=== PATIENT | male | born 1995 | race Caucasian/White ===

== ENCOUNTER 2018-03-06 14:25 | Emergency (ER) | payer OTHER ==
[2018-03-06 14:57] VITALS: BP 152/83
--- NOTE | 2018-03-06 15:52 | UC ---
Back Pain HPI - HPI Summary HPI Summary: Pt c/o sudden onset of left lower back and leg pain, weakness and numbness that began this morning upon waking. Pt states when he got out of bed this morning and left leg "gave out" and he fell to ground. - History of Current Complaint Chief Complaint: UCLowerExtremity Stated Complaint: LEFT LEG PAIN Time Seen by Provider: 03/06/18 15:39 Hx Obtained From: Patient Onset/Duration: Sudden Onset, Still Present, Other - c/o pain, weakness and numbness improved since this morning at time of visit Severity Initially: Moderate Severity Currently: Mild Pain Intensity: 6 Back Pain: Is Discrete @ - left lower bakc, Radiates To - posterior left leg and foot Character: Dull, Aching, Burning Aggravating Factor(s): Movement Alleviating Factor(s): Rest, Position Associated Signs And Symptoms: Positive: Weakness, Numbness, Tingling - Risk Factors AAA Risk Factors: Negative TAD Risk Factors: Negative Cauda Equina Risk Factors: Negative Epidural Abscess Risk Factors: Negative - Allergies/Home Medications Allergies/Adverse Reactions: Allergies Allergy/AdvReac Type Severity Reaction Status Date / Time amoxicillin Allergy Intermediate Hives Verified 03/06/18 14:47 azithromycin Allergy Intermediate Hives Verified 03/06/18 14:47 cefaclor [From Ceclor] Allergy Intermediate Hives Verified 03/06/18 14:47 Penicillins Allergy Intermediate Hives Verified 03/06/18 14:47 Sulfa (Sulfonamide Allergy Intermediate Hives Verified 03/06/18 14:47 Antibiotics) latex Allergy Unknown Rash Verified 03/06/18 14:47 PMH/Surg Hx/FS Hx/Imm Hx Previously Healthy: Yes - Surgical History Surgical History: Yes Surgery Procedure, Year, and Place: T&A - Family History Known Family History: Positive: Unknown, Hypertension, Diabetes - Social History Occupation: Employed Full-time Lives: With Family Alcohol Use: None Substance Use Type: None Smoking Status (MU): Light Every Day Tobacco Smoker Type: Cigarettes Amount Used/How Often: 5 CIGS PER DAY Length of Time of Smoking/Using Tobacco: 2-3 YRS Have You Smoked in the Last Year: Yes - Immunization History Vaccination Up to Date: Yes Review of Systems Constitutional: Negative Skin: Negative Eyes: Negative ENT: Negative Respiratory: Negative Cardiovascular: Negative Gastrointestinal: Negative Genitourinary: Negative Motor: Weakness - left leg Neurovascular: Negative Musculoskeletal: Myalgia - left leg Neurological: Negative Psychological: Negative Is Patient Immunocompromised?: No All Other Systems Reviewed And Are Negative: Yes Physical Exam Triage Information Reviewed: Yes Appearance: Obese Vital Signs: Initial Vital Signs Temp 98 F 03/06/18 14:49 Pulse 85 03/06/18 14:49 Resp 24 03/06/18 14:49 BP 152/83 03/06/18 14:49 Pulse Ox 98 03/06/18 14:49 Vital Signs Reviewed: Yes Eye Exam: Normal ENT Exam: Normal Dental Exam: Normal Neck exam: Normal Respiratory Exam: Normal Cardiovascular Exam: Normal Musculoskeletal Exam: Normal Musculoskeletal: Positive: Strength Intact, ROM Intact, No Edema Neurological Exam: Normal Psychological Exam: Normal Skin Exam: Normal Back Pain Course/Dx - Differential Dx/Diagnosis Differential Diagnosis/HQI/PQRI: Cauda Equina Syndrome, Strain, Sprain Provider Diagnoses: left side sciatica Discharge - Sign-Out/Discharge Documenting (check all that apply): Patient Departure - Discharge Plan Condition: Stable Disposition: HOME Prescriptions: Cyclobenzaprine TAB* [Flexeril 10 MG TAB*] 10 mg PO Q8H PRN #15 tab PRN Reason: Pain Ibuprofen TAB* [Motrin TAB* 800 MG] 800 mg PO Q8H PRN #15 tab PRN Reason: Pain predniSONE [Prednisone 20 MG TAB] 20 mg PO DAILY #4 tablet Patient Education Materials: Sciatica (ED), Lower Back Exercises (ED) Forms: *Work Release Referrals: [facility] [Primary Care Provider] - If Needed - Billing Disposition and Condition Condition: STABLE Disposition: Home Attestation Statement User Type: Provider - I was available for consult. This patient was seen by the ROSARIO. The patient was not presented to, seen by, or examined by me. -Carly
== END 2018-03-06 15:59 | disposition home or self-care (01) ==
LOC: UCCORT 14:25
DX: M54.32 Sciatica, left side (principal); F17.210 Nicotine dependence, cigarettes, uncomplicated; Z88.0 Allergy status to penicillin; Z88.1 Allergy status to other antibiotic agents; Z88.2 Allergy status to sulfonamides; Z91.040 Latex allergy status
CPT/HCPCS: 99211; G0463